=== PATIENT | male | born 1995 | race Hispanic/Latino ===

== ENCOUNTER 2022-03-03 20:01 | Emergency (ER) | payer SELFPAY ==
[2022-03-03] MEDS ORDERED: Dicyclomine 20 MG TAB ONE (20:23)
[2022-03-03] MEDS ORDERED: Ketorolac Tromethamine 30 MG/ML VIAL ONE (20:23)
[2022-03-03] MEDS ORDERED: Ondansetron ODT 4 MG TAB ONE (20:23)
== END 2022-03-03 21:30 | disposition home or self-care (01) ==
LOC: ERS 20:01
DX: B34.9 Viral infection, unspecified (principal); F17.200 Nicotine dependence, unspecified, uncomplicated
CPT/HCPCS: 87804; 96372; 99284; J1885; Q0162

== ENCOUNTER 2022-03-15 18:40 | Emergency (ER) | payer SELFPAY ==
[2022-03-15] MEDS ORDERED: Ondansetron ODT 4 MG TAB ONE (19:27)
[2022-03-15] MEDS ORDERED: Promethazine HCl 25 MG/ML VIAL ONE (19:29)
== END 2022-03-15 20:05 | disposition home or self-care (01) ==
LOC: ERS 18:40
DX: R11.2 Nausea with vomiting, unspecified (principal)
CPT/HCPCS: 96372; 99283; J2550; Q0162

== ENCOUNTER 2022-10-23 21:36 | Emergency (ER) | payer SELFPAY | END 2022-10-23 23:46 | disposition home or self-care (01) | LOC: ERS 21:36 | DX: S09.22XA Traumatic rupture of left ear drum, initial encounter (principal); X58.XXXA Exposure to other specified factors, initial encounter | CPT/HCPCS: 99282 ==

== ENCOUNTER 2023-01-14 09:27 | Emergency (ER) | payer SELFPAY ==
[2023-01-14] MEDS ORDERED: Boostrix 0.5 ML (Tdap) VIAL (>/=7 yrs of age) ONE (10:52)
== END 2023-01-14 12:07 | disposition home or self-care (01) ==
LOC: ERS 09:27
DX: S51.831A Puncture wound without foreign body of right forearm, initial encounter (principal); W45.0XXA Nail entering through skin, initial encounter; W19.XXXA Unspecified fall, initial encounter; Z23 Encounter for immunization
CPT/HCPCS: 90471; 90715